=== PATIENT | female | born 1990 | race Caucasian/White ===

== ENCOUNTER 2021-04-22 08:03 | Emergency (ER) | payer OTHER ==
[2021-04-22 09:47] LABS: HEMOGLOBIN 14.5 gm/dl (12.3-15.3); RED BLOOD COUNT 5.5 M/UL (4.00-5.10); WHITE BLOOD COUNT 8.4 K/UL (4.5-11.0)
[2021-04-22 10:12] LABS: BUN/CREATININE RATIO 26 (0-10)
[2021-04-22] MEDS ORDERED: MACROBID 100 M100 MG PO (12:38)
[2021-04-22] MEDS ORDERED: ZOFRAN4 MG PO (12:38)
== END 2021-04-22 12:53 | disposition home or self-care (01) ==
LOC: ER1 08:03
PROVIDERS: Physician Assistant
DX: N39.0 Urinary tract infection, site not specified (principal); F17.200 Nicotine dependence, unspecified, uncomplicated
CPT/HCPCS: 80053; 81001; 84703; 85025; 87086; 96374; 99284; J2405